=== PATIENT | female | born 1970 | race Caucasian/White ===

== ENCOUNTER 2017-02-11 23:12 | Emergency (ER) | payer MEDICAID ==
[2017-02-12 00:30] LABS: BASOPHILS 0.2 % (0-2); EOSINOPHILS 2.4 % (0-7); HEMATOCRIT 36.5 % (36.0-48.0); HEMOGLOBIN 11.8 g/dL (12-16); IMMATURE GRANULOCYTES 0.4 % (0-5); LYMPHOCYTES 17.6 % (15-50); MCH 24.6 pg (26.0-34.0); MCHC 32.3 g/dL (31.0-37.0); MCV 76.2 fL (80.0-100.0); MEAN PLATELET VOLUME 8.6 fL (7.4-10.4); MONOCYTES 7.9 % (2-11); NEUTROPHILS 71.5 % (40-80); PLATELET COUNT 376 10x3/uL (130-400); RBC 4.79 10x6/uL (4.00-5.40); RDW 15.4 % (11.5-14.5); WBC 5.1 10x3/uL (4.8-10.8)
[2017-02-12 01:08] LABS: ALBUMIN 3.3 g/dL (3.4-5.0); ANION GAP 10.1 mmol/L (8-16); BILIRUBIN - TOTAL 0.8 mg/dL (0.2-1.3); CALCIUM 8.5 mg/dL (8.5-10.1); CARBON DIOXIDE 30.7 mmol/L (21.0-32.0); CREATININE - SERUM 0.9 mg/dL (0.6-1.3); POTASSIUM - SERUM 3.8 mmol/L (3.5-5.1); PROTEIN - SERUM 8.5 g/dL (6.4-8.2)
== END 2017-02-12 01:40 | disposition home or self-care (01) ==
LOC: D.ER 23:12
PROVIDERS: Emergency Medicine
DX: H53.8 Other visual disturbances (principal)

== ENCOUNTER 2017-09-03 14:05 | Emergency (ER) | payer MEDICAID ==
[2017-09-03 15:02] LABS: HEMATOCRIT 30.6 % (36.0-48.0); HEMOGLOBIN 9.5 g/dL (12-16); MCH 25.3 pg (26.0-34.0); MCV 81.4 fL (80.0-100.0); MEAN PLATELET VOLUME 8.6 fL (7.4-10.4); PLATELET COUNT 284 10x3/uL (130-400); RBC 3.76 10x6/uL (4.00-5.40); WBC 25.9 10x3/uL (4.8-10.8)
[2017-09-03 15:19] LABS: ALBUMIN 2.9 g/dL (3.4-5.0); ALKALINE PHOSPHATASE 94 U/L (46-116); ALT (SGPT) 69 U/L (10-68); BILIRUBIN - TOTAL 0.83 mg/dL (0.2-1.3); CALC OSMOLALITY 271 mosm/kg (275-300); CALCIUM 8.2 mg/dL (8.5-10.1); CARBON DIOXIDE 30.9 mmol/L (21.0-32.0); CHLORIDE - SERUM 105 mmol/L (98-107); CREATININE - SERUM 0.8 mg/dL (0.6-1.3); GLUCOSE 89 mg/dL (74-106); PROTEIN - SERUM 6.4 g/dL (6.4-8.2); SODIUM 136 mmol/L (136-145); UREA NITROGEN 16 mg/dL (7-18); eGFR NON AFRICAN AMERICAN 82 mL/min (90-120)
[2017-09-03 15:21] LABS: INR 1.18 (0.85-1.17); PROTIME 14.6 SECONDS (11.6-15.0)
[2017-09-03 15:23] LABS: D-DIMER-QUANTITATIVE 2.82 ug/mLFEU (0.20-0.54)
[2017-09-03 15:25] LABS: POTASSIUM - SERUM 2.9 mmol/L (3.5-5.1)
[2017-09-03 15:26] LABS: C-REACTIVE PROTEIN 4.9 mg/dL (0.0-0.9); CREATINE KINASE 36 UL (21-215); MAGNESIUM - SERUM 1.9 mg/dL (1.8-2.4); PRO BNP 2828 pg/mL (0-125); THYROID STIMULATING HORMONE 3.52 uIU/mL (0.36-3.74)
[2017-09-03 15:30] LABS: BASOPHILS 1 % (0-2); EOSINOPHILS 10 % (0-7); LYMPHOCYTES 25 % (15-50); MONOCYTES 1 % (2-11); NEUTROPHILS 56 % (40-80)
[2017-09-03 15:31] LABS: PLATELET ESTIMATE NORMAL
[2017-09-03 15:32] LABS: POIKILOCYTOSIS OCC; ROULEAUX 1+
[2017-09-03 17:34] LABS: APPEARANCE CLEAR (CLEAR); BILIRUBIN NEGATIVE (NEGATIVE); COLOR YELLOW (YELLOW); GLUCOSE NEGATIVE (NEGATIVE); KETONE NEGATIVE (NEGATIVE); NITRITE NEGATIVE (NEGATIVE); PROTEIN NEGATIVE (NEGATIVE); SPECIFIC GRAVITY 1.005 (1.005-1.020); UROBILINOGEN NORMAL (NORMAL)
[2017-09-03 17:36] LABS: BACTERIA FEW /hpf (NONE SEEN); EPITHELIAL CELLS 0-5 /hpf (0-5); WHITE CELLS - URINE OCC /hpf (0-5)
== END 2017-09-03 19:25 | disposition home or self-care (01) ==
LOC: D.ER 14:05
PROVIDERS: Nurse Practitioner Family
DX: J18.9 Pneumonia, unspecified organism (principal); D64.9 Anemia, unspecified; A49.02 Methicillin resistant Staphylococcus aureus infection, unspecified site; A53.9 Syphilis, unspecified; R06.02 Shortness of breath; N39.0 Urinary tract infection, site not specified; R00.0 Tachycardia, unspecified